=== PATIENT | male | born 1985 | race Caucasian/White ===

== ENCOUNTER 2018-09-06 14:23 | Emergency (ER) | payer OTHER ==
[~2018-09-06] VITALS: Ht 172.7 cm; Wt 54.4 kg
[~2018-09-06 14:23] MED LIST: AMOX500 PO; BENZ100A PO; Bactrim Ds Tab1 EACH PO; CEPH500 PO; CLON1 PO; CODACE30 PO; CODGUAEL PO; CRUTCH3 USE; CYCL10 PO; DOXY100 PO; FAMO20 PO; FLUO10 PO; HYDACE5 PO; IBUP400 PO; IBUP600 PO; IBUP800 PO; MAGIC MOUTHWASH; METPRE4DP PO; OXYACE5T PO; PROM25 PO; Peridex480 ML SS; Prozac20 MG; Robaxin500 MG PO; SULTRIDS PO; TRIA80TC TOP; Ultram50 MG PO
[2018-09-06] MEDS ORDERED: Vistaril25 MG PO (15:55)
[2018-09-06] MEDS ORDERED: METPRE4DP PO (15:55)
[2018-09-06] MEDS ORDERED: Pepcid20 MG PO (15:55)
== END 2018-09-06 16:07 | disposition home or self-care (01) ==
LOC: ER 14:23
DX: L50.9 Urticaria, unspecified (principal); Z88.5 Allergy status to narcotic agent; F17.200 Nicotine dependence, unspecified, uncomplicated
CPT/HCPCS: 99282

== ENCOUNTER 2018-09-10 10:06 | Emergency (ER) | payer OTHER ==
[~2018-09-10] VITALS: Ht 172.7 cm; Wt 55.3 kg
[~2018-09-10 10:06] MED LIST changes: +Pepcid20 MG PO; +Vistaril25 MG PO
== END 2018-09-10 11:35 | disposition left against medical advice (07) ==
LOC: ER 10:06
DX: Z53.21 Procedure and treatment not carried out due to patient leaving prior to being seen by health care provider (principal)

== ENCOUNTER 2019-11-15 18:36 | Emergency (ER) | payer OTHER ==
[~2019-11-15] VITALS: Ht 172.7 cm; Wt 54.4 kg
[~2019-11-15 18:36] MED LIST changes: +Prozac20 MG PO
[2019-11-15] MEDS ORDERED: IBUP600 PO (20:06)
== END 2019-11-15 20:17 | disposition home or self-care (01) ==
LOC: ER 18:36
DX: S93.401A Sprain of unspecified ligament of right ankle, initial encounter (principal); F17.200 Nicotine dependence, unspecified, uncomplicated; Z88.5 Allergy status to narcotic agent; Z79.899 Other long term (current) drug therapy; X58.XXXA Exposure to other specified factors, initial encounter
CPT/HCPCS: 29515; 73610; 99283-25

== ENCOUNTER 2021-07-11 23:38 | Emergency (ER) | payer OTHER ==
[~2021-07-11] VITALS: Ht 172.7 cm; Wt 56.7 kg
[2021-07-11] MEDS ORDERED: CEPH500 PO (23:52)
== END 2021-07-11 23:56 | disposition home or self-care (01) ==
LOC: ER 23:38
DX: L02.01 Cutaneous abscess of face (principal); F17.200 Nicotine dependence, unspecified, uncomplicated; Z88.5 Allergy status to narcotic agent
CPT/HCPCS: 99282; A9270

== ENCOUNTER 2021-09-17 17:34 | Emergency (ER) | payer OTHER ==
[~2021-09-17] VITALS: Ht 172.7 cm; Wt 59.0 kg
[2021-09-17] MEDS ORDERED: Cyclobenzaprine5 MG PO (18:58)
== END 2021-09-17 19:25 | disposition home or self-care (01) ==
LOC: ER 17:34
DX: M62.830 Muscle spasm of back (principal); F17.200 Nicotine dependence, unspecified, uncomplicated; Z88.5 Allergy status to narcotic agent
CPT/HCPCS: 96372; 99283-25; A9270; J1885